=== PATIENT | female | born 1980 | race Caucasian/White ===

== ENCOUNTER 2019-05-12 03:24 | Emergency (ER) | payer MEDICAID ==
[~2019-05-12] VITALS: Ht 170.2 cm; Wt 63.5 kg
[2019-05-12 04:57] VITALS: BP 146/86
[2019-05-12] MEDS ORDERED: IBUPROFEN 800 MG TAB PO ONE (05:00)
[2019-05-12] MEDS ORDERED: ACETAMINOPHEN 500 MG TAB PO ONE (05:00)
== END 2019-05-12 05:49 | disposition home or self-care (01) ==
LOC: ER 03:27
DX: M25.532 Pain in left wrist (principal); M25.531 Pain in right wrist; W18.39XA Other fall on same level, initial encounter; Y93.51 Activity, roller skating (inline) and skateboarding; Y92.89 Other specified places as the place of occurrence of the external cause; Y99.8 Other external cause status
CPT/HCPCS: 73110

== ENCOUNTER 2024-07-11 22:24 | Emergency (ER) | payer MEDICAID ==
[~2024-07-11] VITALS: Ht 167.6 cm; Wt 89.4 kg
[2024-07-12 01:04] VITALS: BP 167/75; TEMP 97.9
[2024-07-12] MEDS ORDERED: AMLO1TAB23 PO (01:14)
--- NOTE | 2024-07-12 01:14 | ED.PDOC ---
History of Present Illness HPI Comments 43-year-old female with no pertinent medical history here today with concern for hypertension with systolic blood pressure in the 140s. Patient was sitting here in the waiting room with her friend who was the patient for a few hours before deciding to check in for herself "since I was here any ways." Patient was states that she had a nosebleed earlier today for a few minutes which she thinks was due to her blood pressure. No numbness or weakness. No headache. No fevers or chills. No nausea or vomiting. No chest pain. No shortness a breath. No other pain or symptoms. 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 Family History Family History: Reviewed,noncontributory to illness, No family hx of Cancer, No family hx of DM, No family hx of Heart karma, No family hx of HTN, No family hx ofKidney karma, No family hx of Liver karma, No family hx of Lung karma, No family hx of Stroke Social History Smoker: Non-Smoker Alcohol: Denies ETOH Use Drugs: Denies Drug Use Lives In: Home Constitutional: denies: chills, diaphoresis, fatigue, fever, malaise, sweats, weakness, others EENTM: denies: blurred vision, double vision, ear bleeding, ear discharge, ear drainage, ear pain, ear ringing, eye pain, eye redness, hearing loss, mouth pain, mouth swelling, nasal discharge, nose bleeding, nose congestion, nose pain, photophobia, tearing, throat pain, throat swelling, voice changes, others Respiratory: denies: cough, hemoptysis, orthopnea, SOB at rest, shortness of breath, SOB with excertion, stridor, wheezing, others Cardiovascular: denies: chest pain, dizzy spells, diaphoresis, Dyspnea on exertion, edema, irregular heart beat, left arm pain, lightheadedness, palpitations, PND, syncope, others Gastrointestinal: denies: abdomen distended, abdominal pain, blood streaked bowels, constipated, diarrhea, dysphagia, difficulty swallowing, hematemesis, melena, nausea, poor appetite, poor fluid intake, rectal bleeding, rectal pain, vomiting, others Genitourinary: denies: abnormal vagina bleeding, burning, dyspareunia, dysuria, flank pain, frequency, hematuria, incontinence, pain, , vagina discharge, urgency, others Neurological: denies: dizziness, fainting, headache, left sided numbness, left sided weakness, numbness, paresthesia, pre-existing deficit, right sided numbness, right sided weakness, seizure, speech problems, tingling, tremors, weakness, others Musculoskeletal: denies: back pain, gout, joint pain, joint swelling, muscle pain, muscle stiffness, neck pain, others Integumetry: denies: bruises, change in color, change in hair/nails, dryness, laceration, lesions, lumps, rash, wounds, others Allergic/Immunocompromised: denies: Difficulty Healing, Frequent Infections, Hives, Itching, others Hematologic/Lymphatic: denies: anemia, blood clots, easy bleeding, easy bruising, swollen glands, others Endocrine: denies: excessive hunger, excessive sweating, excessive thirst, excessive urination, flushing, intolerance to cold, intolerance to heat, unexplained weight gain, unexplained weight loss, others Psychiatric: denies: anxiety, bipolar disorder, depression, hopeless, panic disorder, schizophrenia, sleepless, suicidal, others Physical Exam General Appearance: No Apparent Distress, Normal HEENT: Normal ENT Inspection, Pharynx Normal, TMs Normal Neck: Full Range of Motion, Non-Tender, Normal, Normal Inspection Respiratory: Chest Non-Tender, Lungs Clear, No Accessory Muscle Use, No Respiratory Distress, Normal Breath Sounds Cardiovascular: No Edema, No JVD, No Murmur, No Gallop, Normal Peripheral Pulses, Regular Rate/Rhythm Breast Exam: Deferred Gastrointestinal: No Organomegaly, Non Tender, No Pulsatile Mass, Normal Bowel Sounds, Soft Genitalia: Deferred Pelvic: Deferred Rectal: Deferred Extremities: No calf tenderness, Normal capillary refill, Normal inspection, Normal range of motion, Non-tender, No pedal edema Musculoskeletal : Apperance: Normal Neurologic: Alert, direct casting operator II-XII nml as Tested, No Motor Deficits, Normal Affect, Normal Mood, No Sensory Deficits Cerebellar Function: Normal Reflexes: Normal Skin: Dry, Normal Color, Warm Lymphatic: No Adenopathy Was a procedure done? Was a procedure done?: No Differential Dx Considerations may include: Hypertensive urgency, hypertensive emergency, ACS, renal failure X-Ray, Labs, Meds, VS Vital Signs Date Time Temp Pulse Resp B/P (MAP) Pulse Ox O2 Delivery O2 Flow Rate FiO2 07/12/24 01:04 97.9 84 20 167/75 (105) 98 97.9 07/12/24 01:04 84 20 98 Room Air 07/11/24 23:05 98.0 97 16 145/93 (110) 98 X-Ray, Labs, Meds, VS Comment 43-year-old female here today with a concern for hypertension. Vital signs here notable for hypertension with systolic blood pressures between 140-160. Physical exam without any acute findings. Had a long discussion with the patient regarding with the difference between hypertensive emergency and urgency and symptoms that would be a cause for concern. After having this discussion with the patient, patient decided she did not want to have her blood drawn nor any other further imaging or workup and instead stated "can I just get a sandwich to go instead." I prescribed the patient amlodipine to her preferred pharmacy since she states that she does not have a primary care provider and I gave her a one month supply to give her some time to find one. I also informed her about the process to find one. Questions were answered. Return precautions provided for chest pain, numbness, weakness, shortness of breath, vomiting, any other concerning symptoms. Patient was discharged in stable condition in no distress. Time of 1ST Reevaluation: 01:12 Reevaluation 1ST: Unchanged Patient Education/Counseling: Diagnosis, Treatment, Prognosis, Need For Follow Up Family Education/Counseling: No Family Present Departure 1 Departure Time of Disposition: 01:12 Impression: Primary Impression: Hypertension Disposition: 01 HOME / SELF CARE / HOMELESS Condition: Stable Additional Instructions: Follow up with your primary care provider in 2-3 days for re-evaluation. Return to the ER should he have any new symptoms such as chest pain, numbness, weakness, nausea/vomiting, fevers, or any other concerning or new symptoms. e-Prescriptions Amlodipine Besylate (Amlodipine Besylate) 10 Mg Tab 1 TAB PO DAILY for 30 Days, #30 TAB Prov: PIO HERMOSILLO MD 07/12/24 Critical Care Note Critical Care Time?: No Stability Stability form required: No Heart Score Heart Score: Heart Score Response (Comments) Value History N/A 0 EKG N/A 0 Age N/A 0 Risk Factors N/A 0 Troponin N/A 0 Total 0 PIO HERMOSILLO MD Jul 12, 2024 01:14
[2024-07-12 01:25] VITALS: PULSE 84; RESP 20; O2SAT 98
[2024-07-12] MEDS: HYDROcodone-ACET 5/325MG TAB PO ONE (01:33)
== END 2024-07-12 01:27 | disposition home or self-care (01) ==
LOC: ER 22:24
DX: I10 Essential (primary) hypertension (principal); R04.0 Epistaxis